=== PATIENT | female | born 1940 | race Caucasian/White ===

== ENCOUNTER 2021-01-10 11:17 | Emergency (ER) | payer MEDICARE, OTHER, SELFPAY ==
[2021-01-10 11:17] VITALS: BP 160/119; PULSE 92; RESP 20; TEMP 36.4; O2SAT 91; BMI 27.4
--- NOTE | 2021-01-10 11:42 | RAD_ITS ---
STUDY: X-RAY CHEST REASON FOR EXAM: Female, 80 years old. Cough TECHNIQUE: Single view of the chest was obtained COMPARISON: 07/15/2009 chest radiograph report FINDINGS: Subsegmental atelectasis in right lower lobe. No pneumothorax. No definite pleural effusion. Cardiac size mildly enlarged. IMPRESSION: No acute cardiopulmonary pathology. Electronically Signed: Nikita Nickerson MD at 13:02 EST Tel , Service support , RAD/Chest 1 View (Portable)
--- NOTE | 2021-01-10 11:44 | EKG12_ITS ---
Test Reason : SOB Blood Pressure : / mmHG Vent. Rate : 084 BPM Atrial Rate : 084 BPM P-R Int : 160 ms QRS Dur : 086 ms QT Int : 380 ms P-R-T Axes : 043 -02 023 degrees QTc Int : 449 ms Normal sinus rhythm Normal ECG Confirmed by LENA ZIMMERMAN, PARMINDER ([id number]), editor publications DEEPTHI WHELAN ([id number]) on 01/12/2021 1:22:48 PM Referred By: KAYLEE Confirmed By:PARMINDER PAREDES MD
--- NOTE | 2021-01-10 11:44 | EDS_ITS ---
HPI History of Present Illness Chief Complaint: Cough Informant: patient Onset/Context/Timing Onset: Days (10) Context: gradual Timing: Continuous Worsened by: Nothing Relieved by: Nothing Associated Symptoms cough, fever, sore throat and chills; Negative for rhinorrhea, ear pain, clear sputum, white sputum, yellow sputum or green sputum Chest Pain: Positive for None Narrative Narrative: Patient presents with fatigue, weakness, and cough that has been getting worse over the past 10 days. Patient states that her daughter recently was diagnosed with COVID-19. Patient states her daughter came over to her house last week. Patient states she has had a fever up to 101.3 at home. Patient admits to nausea but denies any vomiting. Patient also admits to a sore throat. Patient also admits to decreased appetite and increased thirst. Patient denies any chest pain. [facility] Medical History Diabetes Hypertension Allergy/AdvReac Type Severity Reaction Status Date / Time No Known Allergies Allergy Verified 01/10/21 12:39 Surgical History (Updated 01/10/21 @ 11:[address] Riley Gutierrez DO) History of hysterectomy Social History Smoking Status: Former smoker ROS ROS ED Constitutional Constitutional ED: Reports chills and fever(s) Eyes Eyes: Denies blurry vision or change in vision ENT ENT ED: Reports sore throat; Denies rhinorrhea Cardiovascular Cardiovascular: Denies chest pain or palpitations Respiratory/Chest Respiratory/Chest: Reports cough and dyspnea Gastrointestinal Gastrointestinal: Reports nausea; Denies vomiting Genitourinary Genitourinary ED: Denies dysuria or hematuria Musculoskeletal Musculoskeletal: Denies back pain or neck pain Integumentary Denies abscess or rash Neurologic Neurologic: Reports weakness; Denies headache(s) Allergic/Immunologic Allergic/Immunologic ED: Denies mouth swelling or urticaria EXAM Physical Exam Const Vital Signs: 01/10/21 11:17 01/10/21 11:47 Temperature 97.5 F L Temperature Source Temporal Pulse Rate 92 Respiratory Rate 20 H Respiratory Effort Short of Breath Blood Pressure 160/119 H Blood Pressure Mean 132 Pulse Ox 91 Oxygen Delivery Method Room Air Room Air Positive well nourished and well developed General Appearance ED: well developed HEENT Reports moist mucous membranes Neck supple and no JVD Resp normal respiratory effort and clear to auscultation bilaterally Cardio regular rate, regular rhythm and no murmurs GI normal to inspection, nondistended, normoactive bowel sounds and non-tender Palpation: soft Extremity normal to inspection General Extremety ED: Negative for edema or tenderness General Extremity: Negative for edema Neuro oriented x3, CN's II-XII intact bilaterally and no sensory deficits noted Sensorium / Orientation: alert Motor Exam: strength 5/5 throughout Psych mental status grossly normal Skin no rashes or lesions noted MDM MDM MDM Narrative Medical decision making narrative: EKG was obtained. On my interpretation, it showed a normal sinus rhythm with a rate of 84. MD interval, QRS interval, and QTc intervals were all normal. [place] was normal. There are no acute ST or T wave changes. COVID-19 rapid antigen was obtained and was positive. CBC was within normal limits. Comprehensive metabolic profile showed a potassium of 3.1. Patient was given a dose of oral potassium here. High-sensitivity troponin was normal. Portable 1 view chest x-ray was obtained. On my interpretation, lung donaldson are clear. There is normal cardiac silhouette. Bony thorax is normal. There is no acute process noted. Radiologist also interpreted the x-ray and agrees. Patient was advised of her findings. Patient was instructed to quarantine herself. Patient was instructed to follow-up with her primary care physician in 3 to 5 days. Patient understood and was agreeable with the plan. All questions were answered. Lab Data Attestation: I reviewed the patient's lab results. Labs: Laboratory Results - last 24 hr 01/10/21 01/10/21 12:05 12:05 WBC 4.5 RBC 4.21 Hgb 12.6 Hct 37.9 MCV 90.0 MCH 29.9 MCHC 33.2 RDW Std Deviation 40.8 RDW Coeff of Eemter[place] 12.3 Plt Count 173 MPV 9.2 Immature Gran % (Auto) 0.200 Neut % (Auto) 60.7 Lymph % (Auto) 29.8 [place] % (Auto) 9.1 Eos % (Auto) 0.0 Baso % (Auto) 0.2 Absolute Neuts (auto) 2.7 Absolute Lymphs (auto) 1.34 Nucleated RBC % 0 Sodium 134 L Potassium 3.1 L Chloride 97 L Carbon Dioxide 29.0 Anion Gap 8 BUN 23 H Creatinine 1.15 H Estim Creat Clear Calc 30.34 Est GFR (MDRD) Af Amer 58 L Est GFR (MDRD) Non-Af 48 L BUN/Creatinine Ratio 20.0 Glucose 131 H Calcium 8.4 L Total Bilirubin 0.70 AST 47 H ALT 26 Alkaline Phosphatase 74 Troponin I High Sens 18 Total Protein 7.9 Albumin 3.1 L Globulin 4.8 H Albumin/Globulin Ratio 0.6 L Radiography Chest X-Ray - ED: 1 View, Read by ED Physician, Read by Radiologist and Normal Diagnostic Testing: Clinical Impression(s) from Imaging Studies Chest X-Ray 01/10/21 11:42 EKG Initial EKG: Attestation: I personally reviewed and interpreted this EKG as follows: Interpretation: Sinus Rhythm (84) and No Acute Injury Pattern Prior EKG tracings: available for review Prior: Unchanged (07/15/2009) Discharge Plan Triage Chief Complaint: Cough ED Provider: Riley Gutierrez Dx/Rx/DC Orders Clinical Impression: COVID-19 Instructions: Coronavirus Disease 2019 (COVID-19): Overview Primary Care Provider: Jorge Laird Referrals: Jorge Laird MD [Primary Care Provider] - 3-5 Days Disposition Disposition: Home, Self Care
[2021-01-10 11:47] VITALS: O2SAT 96
[2021-01-10 11:48] VITALS: O2SAT 95
[2021-01-10 12:22] LABS: Absolute Lymphocyte Count 1.34 X10^3/uL (0.83-4.51); Absolute Neutrophil Count 2.7 X10^3/uL (2.0-7.7); Basophil# 0.01 X10^3/uL; Basophil% 0.2 % (0-1); Hematocrit 37.9 % (37-47); Hemoglobin 12.6 g/dL (12.0-15.0); Lymphocyte # 1.34 X10^3/ul (0.83-4.51); Lymphocyte % 29.8 % (19-41); Mean Corp Hgb Conc 33.2 g/dL (32-36); Mean Corpuscular Hgb 29.9 pg (27.0-32.0); Mean Platelet Vol. 9.2 fl (6.2-12.0); Monocyte# 0.41 X10^3/uL; Monocyte% 9.1 % (0-10); NRBC Flagged by Analyzer 0 % (0-5); Neutrophil # 2.72 X10^3/uL (2.7-7.7); Neutrophil % 60.7 % (47-70); POSITIVE MORPHOLOGY YES; Platelet Count 173 K/mm3 (150-450); RBC Distribution Width CV 12.3 % (11.6-14.6); RBC Distribution Width SD 40.8 fl (35.1-43.9); Red Blood Count 4.21 M/mm3 (4.2-5.4); White Blood Count 4.5 K/mm3 (4.4-11.0)
[2021-01-10 12:24] LABS: Differential Indicated SCAN CRITERIA MET
[2021-01-10 12:41] LABS: ALB/GLOB Ratio 0.6 RATIO (0.9-2.4); AST(SGOT) 47 U/L (15-37); Alanine Aminotransfer ALT/SGPT 26 U/L (13-56); Albumin, Serum 3.1 g/dL (3.2-5.0); Alkaline Phosphatase 74 U/L (45-117); Anion Gap 8 (5-15); BUN 23 mg/dL (7-18); Calcium,Total 8.4 mg/dL (8.5-10.1); Chloride 97 mmol/L (98-107); Creatinine, Serum 1.15 mg/dL (0.55-1.02); EST Glomerular Filtration Rate 48 mL/min (>60); Est Glom Filt Rate - Afr Amer 58 mL/min (>60); Estimated Creatinine Clearance 30.34 ml/min; Globulin 4.8 g/dL (2.2-4.2); Glucose 131 mg/dL (74-106); Potassium 3.1 mmol/L (3.5-5.1); Protein, Total 7.9 g/dL (6.4-8.2); Sodium Level 134 mmol/L (136-145); Troponin-I HS 18 pg/mL (3.0-54.0)
[2021-01-10 14:17] VITALS: BP 150/64; PULSE 75; RESP 18; O2SAT 94
[2021-01-10] MEDS: Potassium Chloride Oral Tablet 20 MEQ 40 MEQ PO (14:28)
[2021-01-10 14:29] VITALS: O2SAT 95
[2021-01-10 15:06] VITALS: BP 143/68; PULSE 78; RESP 20; O2SAT 95
== END 2021-01-10 15:07 | disposition home or self-care (01) ==
PROVIDERS: Emergency Provider Emergency Medicine; PCP Internal Medicine
DX: U07.1 COVID-19 (principal); R11.0 Nausea; E11.9 Type 2 diabetes mellitus without complications; I10 Essential (primary) hypertension; Z87.891 Personal history of nicotine dependence
CPT/HCPCS: 71045; 80053; 84484; 85025; 87426; 93005; 99283; A4216

== ENCOUNTER 2023-07-01 18:11 | Emergency (ER) | payer MEDICARE, OTHER, SELFPAY ==
[2023-07-01 18:11] VITALS: BP 214/79; BP 219/81; PULSE 64; RESP 14; RESP 16; TEMP 35.9; O2SAT 100; O2SAT 99
--- NOTE | 2023-07-01 19:40 | RAD_ITS ---
INDICATION: pain EXAMINATION/TECHNIQUE: X-RAY - XR Hip Unilateral with Pelvis when performed; 3 Views COMPARISON: FINDINGS: PELVIC BONES: No displaced fracture, destructive or sclerotic lesions. Note that overlapping bowel shadows may however obscure fine detail. Sacroiliac joints are unremarkable. No widening of the pubic symphysis. HIPS: The articular structures are unremarkable. No displaced fracture seen in this frontal view. SOFT TISSUES: No soft tissue swelling or gas. There are surgical clips over the pelvis bilaterally. RAD/HIP, UNI W/ Pelvis 2-3 Views IMPRESSION: No evidence of displaced pelvic or hip fracture. Electronically Signed: Sedrick García DO at 20:39 EDT Reading Location ID and State: [facility] / [place] Tel [phone], Service support ,
--- NOTE | 2023-07-01 23:08 | ED.RN ---
Pt no longer in ED triage when name called
== END 2023-07-01 22:30 | disposition left against medical advice (07) ==
LOC: ED 23:25
PROVIDERS: PCP Internal Medicine
DX: M25.552 Pain in left hip (principal); Z53.21 Procedure and treatment not carried out due to patient leaving prior to being seen by health care provider
CPT/HCPCS: 73502